=== PATIENT | female | born 1990 | race Caucasian/White ===

== ENCOUNTER 2022-07-26 19:58 | Emergency (ER) | payer OTHER ==
[~2022-07-26] VITALS: Ht 157.5 cm; Wt 58.1 kg
[~2022-07-26 19:58] MED LIST: AMPICILLIN125 MG/5 M; PRENATAL1 TAB
[2022-07-27] MEDS ORDERED: MEDROLPACK PO (00:06)
[2022-07-27] MEDS ORDERED: ZITHROMAX500 MG PO (00:06)
[2022-07-27] MEDS ORDERED: FLONASE ALLERG9.9 ML NASAL (00:06)
[2022-07-27] MEDS ORDERED: CLARITIN10 M2 PO (00:06)
== END 2022-07-27 00:35 | disposition home or self-care (01) ==
LOC: ER 19:58
DX: J06.9 Acute upper respiratory infection, unspecified (principal)

== ENCOUNTER → 2023-08-07 | Emergency (ER) | payer OTHER ==
[~2023-08-07] MED LIST changes: +CLARITIN10 M2 PO; +FLONASE ALLERG9.9 ML NASAL; +MEDROLPACK PO; +ZITHROMAX500 MG PO
== END | disposition left against medical advice (07) ==
LOC: ER 19:00
DX: Z53.21 Procedure and treatment not carried out due to patient leaving prior to being seen by health care provider (principal)